=== PATIENT | male | born 1935 | race Caucasian/White ===

== ENCOUNTER 2019-06-07 19:36 | Emergency (ER) | payer MEDICARE ==
[~2019-06-07] VITALS: Ht 167.6 cm; Wt 95.2 kg
[~2019-06-07 19:36] MED LIST: ACET325 PO; AMLO10 PO; ATEN25 PO; Aspir 8181 MG PO; BRILINTA90 MG PO; CODACE30 PO; Cyclobenzaprine5 MG PO; FURO40 PO; GABA300 PO; Lisinopril2.5 MG PO; METO25ER PO; NITR.4SL SL; Norco 5-325 Ta1 EACH PO; OLME20 PO; OMEP20ER PO; POTCHL10ER PO; PRAV20 PO; SUCR1SU PO; TRAM50 PO
== END 2019-06-07 22:54 | disposition home or self-care (01) ==
LOC: ER 19:36
DX: S20.211A Contusion of right front wall of thorax, initial encounter (principal); K21.9 Gastro-esophageal reflux disease without esophagitis; I10 Essential (primary) hypertension; E78.5 Hyperlipidemia, unspecified; I48.91 Unspecified atrial fibrillation; E11.9 Type 2 diabetes mellitus without complications; I25.2 Old myocardial infarction; Z88.0 Allergy status to penicillin; Z79.899 Other long term (current) drug therapy; W18.30XA Fall on same level, unspecified, initial encounter
CPT/HCPCS: 70450; 71101; 93005; 93010; 99284-25; A9270; A9270-GY